=== PATIENT | male | born 1940 | race African-American/Black ===

== ENCOUNTER 2019-08-27 12:33 | Inpatient (IN) | payer OTHER ==
[2019-08-27] VITALS (25 sets, daily range): BP systolic 104–137; BP diastolic 59–75
[~2019-08-27] VITALS: Ht 170.2 cm; Wt 78.5 kg
--- NOTE | ~2019-08-27 | P ---
[facility] [place] [address] PROCEDURE REPORT Name: FIOR MOHAN Room #: 437-P [facility] IN ..#: [id number] Admission: 08/27/19 Attend Phys: Rhonda Dykes MD Discharge: Date of : 42 Report #: [id number] THIS REPORT FOR: //name// CC: Rhonda Sweet OUTPATIENT UPPER ENDOSCOPY REPORT BRIEF HISTORY: The patient is a 79-year-old male who presented with marked anemia. He had hemoglobin that was as low as 4.2. He does have microcytic anemia. He also has a history of previous bleeding ulcer several years ago. PREOPERATIVE DIAGNOSIS: Marked microcytic anemia. POSTOPERATIVE DIAGNOSES: 1. Antral gastritis. 2. Small hiatus hernia. MEDICATIONS: Deep sedation with propofol per anesthesia. SPECIMEN: Biopsies of gastritis. ESTIMATED BLOOD LOSS: 3 mL. PROCEDURE: EGD with biopsy. FINDINGS: Prior to propofol sedation, procedure of upper endoscopy was discussed with the patient as well as potential risks and its complications. He indicates he understands and desires to proceed. DESCRIPTION OF PROCEDURE: With the patient in left lateral decubitus position, the Olympus video endoscope was inserted in the cervical esophagus under direct vision without difficulty. Examination of this organ through its entire length revealed normal esophageal mucosa down the squamocolumnar junction. Squamocolumnar junction was inspected and noted to be unremarkable. No ulcers, erosions or bleeding lesions were seen. There was no evidence of Tubbs's mucosa. Esophagitis was not seen. Scope was advanced and a small 2-3 cm sliding-type hernia was seen. Scope was advanced into the stomach, was examined on end views or retroflexed views. There was evidence of patchy gastritis in the antrum, but no ulcers, erosions or bleeding. Upon retroflexion, the hiatus hernia was seen. No other abnormalities were identified. The pylorus was unremarkable. Duodenal bulb was unremarkable. Postbulbar sweep was inspected and noted to be unremarkable. At that point, the scope was slowly withdrawn and careful circumferential views were obtained. Biopsies were also obtained of the small bowel to evaluate for celiac disease. [facility] [address] [place] [address] PROCEDURE REPORT Name: FIOR MOHAN Room #: 437-P [facility] IN ..#: [id number] Admission: 08/27/19 Attend Phys: Rhonda Dykes MD Discharge: Date of : 42 Report #: [id number] DISPOSITION: A definite bleeding site was not identified. He does have patchy gastritis in the antrum. There was no evidence of active bleeding. It is possible he could have vascular ectasias associated with the gastritis, although typical watermelon stomach changes were not seen. We will follow up on biopsies. Also colonoscopy would be reasonable, especially since he has a microcytic anemia and the source of blood loss was not identified. By: [id number] Aj Byrne MD /nt
[2019-08-27 13:20] LABS: MCH 18.9 pg (26.0-34.0); MCHC 27.6 g/dL (28.0-37.0); MCV 68.5 fL (80.0-100.0); PLATELET COUNT 378 thou/uL (150-400); RBC 2.53 mil/uL (4.50-6.00); RDW 19.7 % (10.5-14.5); WBC 13.2 thou/uL (4.0-11.0)
[2019-08-27 13:21] LABS: HEMOGLOBIN 4.8 gm/dL (14.0-18.0)
[2019-08-27 13:22] LABS: HEMATOCRIT 17.3 % (42.0-52.0)
[2019-08-27 13:24] LABS: CALCIUM 8.8 mg/dL (8.5-10.1); CREATININE 1.4 mg/dL (0.7-1.3); POTASSIUM 3.9 mmol/L (3.5-5.1)
[2019-08-27 13:28] LABS: INR 1.1; PROTIME 10.8 Seconds (9.3-11.4)
[2019-08-27 13:30] LABS: ALBUMIN 3.7 g/dL (3.4-5.0); TOTAL BILIRUBIN 0.3 mg/dL (<0.1-1.0); TOTAL PROTEIN 7.6 g/dL (6.4-8.2)
[2019-08-27 13:52] LABS: ABSOLUTE NEUTROPHILS 10.4 thou/uL (1.4-8.2)
[2019-08-27 13:53] LABS: ANISOCYTOSIS 2+; HYPOCHROMASIA 2+; MICROCYTES 1+
[2019-08-27 13:54] LABS: BURR CELLS OCCASIONAL
[2019-08-27 13:55] LABS: POIKILOCYTOSIS SLIGHT
[2019-08-27] MEDS ORDERED: ASA81BEC PO (14:12)
[2019-08-27] MEDS ORDERED: ARICEPT10 M1 PO (14:13)
[2019-08-27] MEDS ORDERED: NAMENDA 10 MG T10 MG PO (14:14)
[2019-08-27] MEDS ORDERED: NORVASC 2.5 MG2.5 M1 PO (14:14)
[2019-08-27] MEDS ORDERED: LIPITOR 20 MG T20 M1 PO (14:14)
[2019-08-27 15:18] LABS: CHOLESTEROL 126 mg/dL (<200); HDL CHOLESTEROL 43 mg/dL (>40); LDL CHOLESTEROL 64 mg/dL (<100); TC:HDL 2.9 Ratio (Not establshd); TRIGLYCERIDE 99 mg/dL (<150); VLDL 20 mg/dL (<40)
[2019-08-27 15:43] LABS: FOLIC ACID 17.6 ng/mL (8.6-58.9); TSH 1.672 uIU/mL (0.358-3.740)
[2019-08-27 16:06] LABS: HEMOGLOBIN 4.2 gm/dL (14.0-18.0)
[2019-08-27 16:07] LABS: HEMATOCRIT 14.9 % (42.0-52.0)
--- NOTE | 2019-08-27 17:12 | EKG ---
[address] [place] [address] ELECTROCARDIOGRAM REPORT Name: FIOR MOHAN Room #: 236-P ADM IN M.R.#: [id number] Admission: 08/27/19 Attend Phys: Rhonda Dykes MD Discharge: Date of : 42 Report #: [id number] THIS REPORT FOR: //name// [facility] ED Test Date: 2019-08-27 Test Time: 13:40:01 Pat Name: FIOR MOHAN Department: Room: 236 Gender: M Radiology Transporter: araceli : 1940 Requested By: Stewart Pedraza Order Number: [id number] MD: Maldonado Loyd Measurements Intervals [place] Rate: 91 P: 61 ID: 148 QRS: -67 QRSD: 156 T: 24 QT: 414 QTc: 510 Interpretive Statements Sinus rhythm RBBB and LAFB Baseline wander in lead(s) V5 Compared to ECG 03/04/2006 09:58:47 Left anterior fascicular block now present Right bundle-branch block now present ST (T wave) deviation no longer present Electronically Signed On 08-27-2019 17:11:55 [employer] by Maldonado Loyd [email or web address] <ELECTRONICALLY SIGNED> By: Maldonado Loyd MD, [facility] 08/27/19 1711 1340 1340 Maldonado Loyd MD, [facility] /EPI
--- NOTE | 2019-08-27 17:39 | NUR ---
CONSULTED TO PLACE A PICC FOR A PATIENT IN THE ICU NEEDING ADDITIONAL ACCESS. ORDER AND CONSENT NOTED. THE PROCEDURE WELL BENIFITS AND RISKS WERE DISCUSSED AND HE VERBALIZED UNDERSTANDING. THE RIGHT UPPER ARM BASILIC WAS WIDLEY PATENT. A #5F TRIPLE LUMEN POWER PICC WAS PLACED AFTER A BEDSIDE TIMEOUT WAS COMPLETED. PICC WAS TRIMMED TO 45CM AND ADVANCED WITHOUT DIFFICULTY. A STAT CHEST XRAY CONFIRMED LINE AT [facility]. LINE RELEASED FOR USE
--- NOTE | 2019-08-27 19:32 | NUR ---
PT ADMITTED WITH H/H 4.8/17.3, CONSENT FOR BLOOD/PICC/EGD OBTAINED. BLOOD STARTED AT 1635, NO SIGNS OF TRANSFUSION REACTION. PROGRESSING TOWARDS PLAN OF CARE EVIDENCE BY PT ADMITTING TO HAVING MORE STRENGTH.
[2019-08-28] VITALS (23 sets, daily range): BP systolic 117–164; BP diastolic 72–93
[2019-08-28 00:48] LABS: HEMATOCRIT 21.5 % (42.0-52.0)
[2019-08-28 00:49] LABS: HEMOGLOBIN 6.7 gm/dL (14.0-18.0)
[2019-08-28 03:06] LABS: GLYCOHEMOGLOBIN (HGB A1C) 5.6 % (4.8-5.6)
--- NOTE | 2019-08-28 06:24 | NUR ---
Pt rested well through the night, he was A/O x 3-4, BRYAN's, assists with turns. Monitor reads SR, VSS, he received a total of 3 units of PRBC's, Hgb went to 6.7 after the second units, recheck Hgb to be completed. He is on room air, LCTA, sats 94% and above. Voids per urinal, pericare provided as needed. Protonix is infusing, EGD scheduled for this AM, he has been NPO since midnight. The bed is in the low/locked position, the call light is within reach, siderails are up x 4, and the bed alarm is set.
[2019-08-28 08:16] LABS: ABSOLUTE NEUTROPHILS 8.1 thou/uL (1.4-8.2); BASOPHILS 0.7 % (0.0-2.0); EOSINOPHILS 0.2 % (0.0-3.0); HEMATOCRIT 24.5 % (42.0-52.0); HEMOGLOBIN 7.7 gm/dL (14.0-18.0); LYMPHOCYTES 16.6 % (24.0-44.0); MCH 23.1 pg (26.0-34.0); MCHC 31.4 g/dL (28.0-37.0); MCV 73.4 fL (80.0-100.0); MONOCYTES 7.3 % (1.0-8.0); POLYS 75.2 % (36.0-66.0); RBC 3.33 mil/uL (4.50-6.00); RDW 21.9 % (10.5-14.5); WBC 10.7 thou/uL (4.0-11.0)
[2019-08-28 08:38] LABS: LARGE PLATELETS OCCASIONAL; PLATELET COUNT 234 thou/uL (150-400); PLATELET ESTIMATE NORMAL
[2019-08-28 08:39] LABS: ANISOCYTOSIS 2+; HYPOCHROMASIA 1+; MACROCYTES FEW; MICROCYTES 1+; POLYCHROMASIA SLIGHT
[2019-08-28 08:40] LABS: CALCIUM 8.7 mg/dL (8.5-10.1); CREATININE 1.1 mg/dL (0.7-1.3); MAGNESIUM 1.9 mg/dL (1.8-2.4); OVALOCYTES FEW; POIKILOCYTOSIS SLIGHT; TARGET CELLS OCCASIONAL
--- NOTE | 2019-08-28 15:47 | NUR ---
CM ASSESSMENT: CASE OPENED FOR DC PLANNING. CLINICAL INFO REVIEWED. PT ADMITS WITH ANEMIA AND WEAKNESS. HX DEMENTIA AND GI BLEED FROM ULCER. HGB ON ADMIT IN THE 4'S, TRANSFUSED 3 U PRBC AND EGD DONE TODAY SHOWS GASTRITIS, NO ACTIVE BLEEDING. MARKED MICROCYTIC ANEMIA WITH RECOMMENDATION FOR COLONOSCOPY. PT IS RETIRED AND LIVES IN HOUSE WITH SPOUSE. INDEPENDENT WITH ADLS, NO DME OR PREVIOUS HH. THERAPY EVALS DONE TODAY AND PT DISCHARGED PATIENT. COLONOSCOPY PLANNED FOR 08/29.
--- NOTE | 2019-08-28 16:50 | NUR ---
TRANSFER TO ROOM 437 VIA WHEEL CHAIR WITH ALL BELONGINGS. STARTED BOWEL PREP UPON ARIVAL TO ROOM SUPOSE TO HAVE A COLONOSCOPY TOMORROW PER GI. NPO AFTER MIDNIGHT INSTRUCTIONS GIVEN TO PT. VERBALIZES UNDERSTANDING OF PLAN OF CARE.
[2019-08-28 17:04] LABS: HEMATOCRIT 23.6 % (42.0-52.0); HEMOGLOBIN 7.4 gm/dL (14.0-18.0)
--- NOTE | 2019-08-28 20:02 | NUR ---
AT APPROX 1700 PT TRANSFERRED TO ROOM 437. VS'S TAKEN IN CHART. IV FLUIDS INFUSING ORDERED. PT STARTED ON BOWEL PREP AND COMPLETED AT 1800 AT BEDSIDE PT W/O PAIN OR RESP DISTRESS.
[2019-08-28 23:58] LABS: HEMATOCRIT 23.8 % (42.0-52.0); HEMOGLOBIN 7.5 gm/dL (14.0-18.0)
[2019-08-29 01:25] VITALS: BP 167/78
[2019-08-29 03:00] VITALS: BP 161/60
--- NOTE | 2019-08-29 05:01 | NUR ---
PT A&O X4 FORGETFUL DENIES PAIN. PT NPO AFTER MIDNITE FOR COLONOSCOPY FOR GI BLEED. H&H Q8H HGB AT 230HRS 7.5. PT BP ELEVATED HOSPITALIST COMMUTATOR V RING ASSEMBLER NOTIFED PRN HYDRALAZINE ORDER OBTAINED WITH PARAMETERS. PT'S SPOUSE AT BEDSIDE
[2019-08-29 07:25] VITALS: BP 154/82
--- NOTE | 2019-08-29 08:19 | NUR ---
PT LEFT UNIT FOR COLONOSCOPY AT THIS TIME. STAT LABS PULLED FROM RIGHT UPPER PICC. SENT TO LAB. PT W/O PAIN OR RESP DISTRESS. V.S 98.2 18 70 154/82 O2 SAT = 95% RA.
[2019-08-29 08:28] LABS: HEMATOCRIT 24.2 % (42.0-52.0); HEMOGLOBIN 7.7 gm/dL (14.0-18.0)
--- NOTE | 2019-08-29 10:51 | NUR ---
PT RETURNED TO UNIT FROM COLONOSCOPY. POST OP STATES NO FINDINGS DR GONZALEZ UP ON UNIT.
[2019-08-29 17:19] VITALS: BP 154/91
--- NOTE | 2019-08-29 19:54 | NUR ---
TOOK VIDEO CAPSULE BELT OFF AT 1900 PUT IN BAG ON WINDOW SILL ORDERED.
[2019-08-29 20:05] VITALS: BP 124/65
--- NOTE | 2019-08-29 20:28 | NUR ---
2024 notified Martha Pham of hypotension of 90/50 and bradycardia of radial pulse 58, and that pt asymptomatic, recheck at 2019 manual bp of 102/62 rdial pulse 56, pt remains asymptomatic.
[2019-08-30 06:33] VITALS: BP 136/69
[2019-08-30 08:04] VITALS: BP 136/73
[2019-08-30 10:36] LABS: HEMATOCRIT 23.2 % (42.0-52.0); HEMOGLOBIN 7.3 gm/dL (14.0-18.0)
--- NOTE | 2019-08-30 14:37 | P ---
[facility] [place] [address] PROCEDURE REPORT Name: FIOR MOHAN Room #: 437-P [facility] IN ..#: [id number] Admission: 08/27/19 Attend Phys: Rhonda Dykes MD Discharge: Date of : 42 Report #: [id number] THIS REPORT FOR: //name// CC: Rhonda Sweet DATE OF SERVICE: 08/29/2019 GASTROINTESTINAL PROCEDURE NOTE PROCEDURE PERFORMED: Diagnostic colonoscopy. INDICATION: Critical anemia, GI bleeding. MEDICATIONS: Propofol anesthesia administered by the Anesthesia team. DESCRIPTION OF THE PROCEDURE: After informed consent was obtained, the patient was sedated by anesthesia team to achieve optimal sedation in the operating room. The Olympus colonoscope was then introduced under direct visualization through the rectum and exam was completed to the cecum. The cecum was identified with the appendiceal orifice and the ileocecal valve. The overall quality of the prep was fair to poor. I was able to exclude large masses or diverticular disease. Small to medium sized polyps could be easily missed due to the prep. There were no immediate complications. POSTPROCEDURE DIAGNOSES AND FINDINGS: Exam completed to the cecum with overall quality of the prep being fair to poor. I was able to exclude large masses; however, small to medium sized polyps could be easily missed. Of note, there was no diverticular disease noted. RECOMMENDATIONS: 1. Monitor serial hemoglobin in the hospital over the weekend. 2. Advance diet as tolerated. 3. PillCam study to be performed on Saturday. Thank you for allowing me to participate in the care of the patient. <ELECTRONICALLY SIGNED> By: El Fernandez MD 08/30/19 1437 1016 1142 El Fernandez MD /nt
--- NOTE | 2019-08-30 16:03 | NUR ---
Assumed care of pt at 0700. Pt denies pain. SBA to the toilet. States he has not had a bowel movement yet since pill capsule was ingested. Fluids discontinued. Purple top lab tube sent to lab for H&H. PICC line patent and blood draws back w/o issues. Family at bedside. Call light within reach. Will continue to monitor.
[2019-08-30 17:40] VITALS: BP 152/80
[2019-08-30 19:20] VITALS: BP 127/58
--- NOTE | 2019-08-31 02:17 | NUR ---
ASSESSMENT COMPLETED.PT DENIED PAIN/N/V SO FAR.NO S/S OF BLEEDING NOTED.PT UP WITH ASSIST TO THE BR.PT'S SPOUSE AT BEDSIDE.NO BM SO FAR THIS SHIFT.PT RESTING ON HIS BED AT THIS TIME.FALL PRECAUTIONS IN PLACE,CALL LIGHT WITHIN REACH.
[2019-08-31 03:53] LABS: HEMATOCRIT 24.2 % (42.0-52.0); HEMOGLOBIN 7.8 gm/dL (14.0-18.0)
[2019-08-31 04:04] VITALS: BP 157/82
[2019-08-31 08:13] VITALS: BP 155/86
[2019-08-31 08:21] LABS: % SATURATION 3 % (20-39); IRON 11 ug/dL (65-175); TIBC 433 ug/dL (250-450)
[2019-08-31] MEDS ORDERED: PEPCID20 MG PO (13:32)
[2019-08-31 14:22] VITALS: BP 155/86
[2019-08-31 15:52] VITALS: BP 146/75
--- NOTE | 2019-08-31 16:06 | PATH ---
[facility] [address] [place] [address] PATHOLOGY RPT PROCEDURE Name: CHOLO CARDENAS Room #: 437-P [facility] IN M.R.#: [id number] Admission: 08/27/19 Date of : 42 Discharge: Report #: [id number] Path Case #: [id number] [facility] Accession Number: [id number] . 01 Material submitted: . PART A: small bowel - BX OF SMALL BOWEL PART B: stomach - BX OF GASTRITIS . 01 Clinical history: . Anemia, gastritis, hiatus hernia. . 02 Diagnosis: A. Small bowel mucosa, rule out celiac disease, endoscopic biopsy: - Mild acute and chronic duodenitis associated with fundic-type metaplasia, compatible with peptic duodenitis. - Negative for villous blunting or increase in intraepithelial lymphocytes. . B. Gastric mucosa, gastritis rule out H. pylori, endoscopic biopsy: - Mild chronic active gastritis. - Negative for intestinal metaplasia or atrophy. - Negative for Helicobacter pylori (properly controlled immunohistochemical stain performed). (IUV/db; 08/31/2019) LBQ 08/31/2019 1246 Local . 02 Electronically signed: . Magdalena Mathews MD, Pathologist NPI- [id number] . 01 Gross description: . A. Received in formalin labeled "Cholo Cardenas, BX of small bowel to rule out celiac" is a 1.3 x 0.6 x 0.1 cm aggregate of clifford-brown mucosa fragments. The specimen is submitted in A1. . B. Received in formalin labeled "Cholo Cardenas, BX of gastritis" is a 0.8 x 0.4 x 0.1 cm aggregate of clifford-brown mucosa fragments. The specimen is submitted in B1. ([facility]; 08/30/2019) [facility] 08/30/2019 1119 Local . 02 Pathologist provided ICD-10: K29.80, K29.50 . 02 CPT . 142136, 631403, [id number] Specimen Comment: A courtesy copy of this report has been sent to [phone], [phone] [address] PATHOLOGY RPT PROCEDURE Name: CHOLO CARDENAS Room #: 437-P [facility] IN M.R.#: [id number] Admission: 08/27/19 Date of : 42 Discharge: Report #: [id number] Path Case #: [id number] Specimen Comment: [id number], Specimen Comment: Report sent to , and Performed at: [address], [place] [id number] MD Mitchell Decker MD Phone: [phone] Performed at: [address] [id number] MD Magdalena Mathews MD Phone: [phone]
--- NOTE | 2019-08-31 19:42 | NUR ---
Assumed care of pt at 0700. Denies pain. Pt had a bowel movement today. Unable to see pill cam. Provider aware. Possible d/c in the am. PICC line in place. Discharge order in by hosp doctor. Clarified with GI and they stated pt will stay in the hostal tonight. Family at bedside. Call light within reach. Report given to yaakov GUIDO.
--- NOTE | 2019-08-31 19:45 | NUR ---
1900 ASSUMED CARE OF PT AFTER BEDISDE REPORT. 1930 BASELINE ASSESSMENT COMPLETED, PT RESTING IN BED WITH FAMILY AT BEDSIDE, STATES LARGE BM TODAY WITH NO FIOR BLOOD, CLIENT IS URINATING WITHOUT DIFFUCULTY, DENIES PAIN, DIZZINESS WHEN STANDING A+OX 4, SCDS APPILED AND PT WILL CALL FOR ASSIST TO BATHROOM VS STABLE AT THIS TIME.
[2019-08-31 20:00] VITALS: BP 153/76
[2019-09-01 04:33] VITALS: BP 165/88
[2019-09-01 06:39] LABS: HEMATOCRIT 24.3 % (42.0-52.0); HEMOGLOBIN 7.8 gm/dL (14.0-18.0)
[2019-09-01 08:28] VITALS: BP 149/78
--- NOTE | 2019-09-01 12:33 | NUR ---
Assumed care of pt at 0700. Pt denies pain. KUB ordered. Family at bedside. Possible discharge today. Call light within reach.
--- NOTE | 2019-09-01 12:34 | NUR ---
VASCULAR ACCESS TEAM SPOKE TO KE GUIDO ABOUT DC PICC LINE, NO LONGER APPROPRIATE. KE STATED PT GOING HOME LATER TODAY.
[2019-09-01] MEDS ORDERED: PROTONIX40 M2 PO (15:08)
[2019-09-01] MEDS ORDERED: SLOW FE142 MG PO (15:12)
[2019-09-01 15:37] VITALS: BP 155/86
== END 2019-09-01 17:25 | disposition home or self-care (01) | DRG 377 ==
LOC: ER 12:33 → EROBS 13:53 → ICU 13:53 → 4S 08-28 18:09 → ENTRNSPT 09-01 16:36 → 4S 09-01 17:25
PROVIDERS: Emergency Medicine; Hospitalist; Internal Medicine Gastroenterology; Nurse Practitioner; ADMIT Hospitalist
PROC: 02H633Z Insertion of Infusion Device into Right Atrium, Percutaneous Approach (ICD-10-PCS; principal; 2019-08-27)
PROC: 30233N1 Transfusion of Nonautologous Red Blood Cells into Peripheral Vein, Percutaneous Approach (ICD-10-PCS; principal; 2019-08-27)
PROC: 0DB88ZX Excision of Small Intestine, Via Natural or Artificial Opening Endoscopic, Diagnostic (ICD-10-PCS; 2019-08-28)
PROC: 0DJD8ZZ Inspection of Lower Intestinal Tract, Via Natural or Artificial Opening Endoscopic (ICD-10-PCS; 2019-08-29)
DX: K29.71 Gastritis, unspecified, with bleeding (principal); N17.0 Acute kidney failure with tubular necrosis; K55.21 Angiodysplasia of colon with hemorrhage; E78.00 Pure hypercholesterolemia, unspecified; K44.9 Diaphragmatic hernia without obstruction or gangrene; N40.0 Benign prostatic hyperplasia without lower urinary tract symptoms; E78.5 Hyperlipidemia, unspecified; E86.0 Dehydration; K21.9 Gastro-esophageal reflux disease without esophagitis; R73.9 Hyperglycemia, unspecified; K63.5 Polyp of colon; K64.4 Residual hemorrhoidal skin tags; F03.90 Unspecified dementia, unspecified severity, without behavioral disturbance, psychotic disturbance, mood disturbance, and anxiety; I10 Essential (primary) hypertension; Z79.82 Long term (current) use of aspirin; Z79.899 Other long term (current) drug therapy; Z87.891 Personal history of nicotine dependence; Z87.11 Personal history of peptic ulcer disease; Z85.46 Personal history of malignant neoplasm of prostate; D50.9 Iron deficiency anemia, unspecified
CPT/HCPCS: 10078; 10102; 10204; 27000; 62110; 62900; 70005; 85076